=== PATIENT | female | born 1965 | race African-American/Black ===

== ENCOUNTER 2019-12-09 09:21 | Day surgery (SDC) | payer BC ==
[2019-12-08 12:46] VITALS: BMI 25.7
[2019-12-09] MEDS ORDERED: IBUPROFEN 600 MG TABLET (FP) PO PRN (10:39)
[2019-12-09] MEDS ORDERED: IBUPROFEN 800 MG/8 ML IJ IVPB PRN (10:39)
[2019-12-09] MEDS ORDERED: oxyCODONE HCL 5 MG TABLET PO PRN (10:39)
[2019-12-09] MEDS ORDERED: ONDANSETRON 4 MG/2 ML VIAL IVPUSH PRN (10:39)
--- NOTE | 2019-12-09 10:39 | HP ---
History & Physical Update - History History: No Change - Physical Physical: No Change - Assessment Assessment: No Change - Plan Plan: No Change (Consent sined and witnessed)
[2019-12-09] MEDS ORDERED: ELECTROLYTE-148 SOLN 1,000 ML IV SCH (10:45)
[2019-12-09] MEDS ORDERED: MIDAZOLAM HCL 2 MG/2 ML SINGLE DOSE VIAL ONE (11:40)
[2019-12-09] MEDS ORDERED: PROPOFOL 20 ML ONE ×2 (11:40→12:18)
[2019-12-09] MEDS ORDERED: DESFLURANE GAS 240 ML BOTTLE IH ONE (11:56)
[2019-12-09] MEDS ORDERED: SEVOFLURANE 250 ML BTL ONE (11:56)
[2019-12-09] MEDS ORDERED: DEXAMETHASONE SOD PHOSPHATE 4 MG/1 ML VIAL ONE (12:18)
[2019-12-09] MEDS ORDERED: LACTATED RINGERS SOLUTION 1,000 ML IV SCH (13:45)
[2019-12-09 13:58] VITALS: TEMP 97.7
[2019-12-09 16:51] VITALS: BP 117/67; PULSE 81
--- NOTE | 2019-12-09 19:26 | OP ---
Operative Note - Note: Operative Date: 12/09/19 Pre-Operative Diagnosis: 54yo P2 with Menorrhagia, anemia Operation: Hysteroscopy/Myomectomy/D&C Findings: Large anterior wall fibroids x 2 Right lateral wall fibroid Post-Operative Diagnosis: Same as Pre-op Surgeon: Sarah Eller Anesthesiologist/SUPERVISOR BRAIDING: Ivonne Chang Anesthesia: MAC Estimated Blood Loss (mls): 10 Drains & Tubes with Location: Fluid deficit 700cc Drains, Volume Out (mls): 200 Fluid Volume Replaced (mls): 700 Operative Report Dictated: Yes
--- NOTE | 2019-12-10 09:14 | OP ---
DATE OF OPERATION: 12/09/2019 PREOPERATIVE DIAGNOSIS: Jahst-hab-ulcm-old para 2 with menorrhagia, anemia, fibroid uterus. PROCEDURE: Hysteroscopy, myomectomy, dilation and curettage. SURGEON: Osmel Eller MD ANESTHESIOLOGIST: Ivonne Chang MD ANESTHESIA: MAC. DESCRIPTION OF THE OPERATIVE PROCEDURE: After assuring informed consent, patient was brought to the operating room. After obtaining anesthesia, she was placed in dorsal lithotomy position. Perineum and vagina were prepped and draped in sterile fashion. Symphion hysteroscope was assembled, primed, and balanced. The cervix was visualized by placing Warner retractors into the vagina. Anterior cervical lip was articulated with single-tooth tenaculum, and cervix was gradually dilated with Powell dilators to accommodate 6.3-mm Symphion hysteroscope, which was introduced into the uterus without any difficulty. Several submucosal fibroids were noted, all stage 1; one in the right lateral surface and 2 on the anterior wall of the uterus. The resectoscope was introduced, the Symphion, and all of the 3 fibroids were significantly reduced in size. The lateral fibroid was shaved down to the level of endometrium. The anterior fibroid, the largest in size, was approximately 5 cm, was delivering as resection was taking place. Significant amount of old fibroids was resected, at which point after achieving 700 mL of fluid deficit, the procedure was terminated. Estimated blood loss was 10 mL. Patient received 700 mL of IV fluids and drained 200 mL of urine. All instruments were removed from uterus, cervix, and vagina. Excellent hemostasis was noted. All instrument and sponge counts were correct x2. Patient was brought to the recovery room in stable condition. OSMEL ELLER M.D. [id number]
--- NOTE | 2019-12-11 12:30 | PATH ---
Surgical Pathology Report Patient Name: SARA AMBROCIO [facility]. Rec. #: [id number] /Age/Gender: 1965 (Age: 54) / F Account: [id number] Location: [facility] Taken: 12/09/2019 Received: 12/09/2019 Reported: 12/11/2019 Physicians: Sarah Eller M.D. Specimen(s) Received UTERINE FIBROIDS Clinical History Abnormal urine/vaginal bleeding Final Diagnosis FIBROID, RESECTION: PORTIONS OF SMOOTH MUSCLE BUNDLES, CONSISTENT WITH SUBMUCOSAL LEIOMYOMA. SEPARATE FRAGMENTS OF PROLIFERATIVE ENDOMETRIUM. Electronically Signed Sandra Workman M.D. Gross Description Received in formalin labeled "fibroid," is a 10 g, 8.5 x 7.0 x 0.4 cm aggregate of vitale firm tissue fragments admixed with blood clot. A liability claims representative portion is submitted in 6 cassettes. /12/10/2019 [facility]12/10/2019
== END 2019-12-09 16:52 | disposition home or self-care (01) ==
LOC: JASU-SURG 09:21 → EDSTATUS 11:00 → JASU-SURG 16:52
PROVIDERS: ATTEND Obstetrics & Gynecology
PROC: 0UJD8ZZ Inspection of Uterus and Cervix, Via Natural or Artificial Opening Endoscopic (ICD-10-PCS; 2019-12-09)
PROC: 0UB98ZZ Excision of Uterus, Via Natural or Artificial Opening Endoscopic (ICD-10-PCS; principal; 2019-12-09 11:00)
PROC: 0UDB7ZX Extraction of Endometrium, Via Natural or Artificial Opening, Diagnostic (ICD-10-PCS; 2019-12-09 11:00)
DX: N92.0 Excessive and frequent menstruation with regular cycle (principal); D25.0 Submucous leiomyoma of uterus; D64.9 Anemia, unspecified
CPT/HCPCS: 84703; 86850; 86900; 86901; 88305-TC; 94760

== ENCOUNTER 2023-11-20 03:55 | Day surgery (SDC) | payer BC ==
[2023-11-19 09:20] VITALS: BMI 29.4
[2023-11-20 06:53] VITALS: RESP 18
[2023-11-20] MEDS ORDERED: LIDOCAINE HCL/PF 2% SDV 5ML VIAL ONE (07:53)
[2023-11-20] MEDS ORDERED: DEXAMETHASONE SOD PHOSPHATE 4 MG/1 ML VIAL ONE (07:53)
[2023-11-20] MEDS ORDERED: KETOROLAC TROMETHAMINE 30 MG/1 ML VIAL ONE (07:53)
[2023-11-20] MEDS ORDERED: ONDANSETRON 4 MG/2 ML VIAL ONE (07:53)
[2023-11-20] MEDS ORDERED: oxyCODONE HCL 5 MG TABLET PO PRN ×2 (08:41→08:50)
[2023-11-20] MEDS ORDERED: ONDANSETRON 4 MG/2 ML VIAL IVPUSH PRN ×2 (08:41→08:50)
[2023-11-20] MEDS ORDERED: LACTATED RINGERS SOLUTION 1,000 ML IV SCH (08:45)
[2023-11-20] MEDS ORDERED: IBUPROFEN 600 MG TABLET (FP) PO PRN (08:50)
[2023-11-20] MEDS ORDERED: IBUPROFEN 800 MG/8 ML IJ IVPB PRN (08:50)
[2023-11-20] MEDS ORDERED: ACETAMINOPHEN INJECTION 100 ML IVPB ONE (08:53)
[2023-11-20] MEDS ORDERED: ELECTROLYTE-148 SOLN 1,000 ML IV SCH (09:00)
[2023-11-20] MEDS ORDERED: MIDAZOLAM HCL 2 MG/2 ML SINGLE DOSE VIAL ONE (09:06)
[2023-11-20] MEDS ORDERED: FENTANYL CITRATE/PF 50 MCG/ML VIAL ONE ×2 (09:06→10:57)
[2023-11-20 12:54] VITALS: BP 137/76; PULSE 66; TEMP 97.8
== END 2023-11-20 12:45 | disposition home or self-care (01) ==
LOC: JASU-SURG 03:55
PROVIDERS: ATTEND Obstetrics & Gynecology
PROC: 0UB98ZZ Excision of Uterus, Via Natural or Artificial Opening Endoscopic (ICD-10-PCS; principal; 2023-11-20 08:30)
DX: N95.0 Postmenopausal bleeding (principal); D25.0 Submucous leiomyoma of uterus
CPT/HCPCS: 82962; 86850; 86900; 86901; 88305-TC; 94760; J0131